=== PATIENT | female | born 1935 | race Caucasian/White ===

== ENCOUNTER 2017-03-18 11:54 | Emergency (ER) | payer MEDICARE ==
--- NOTE | 2017-03-18 14:40 | UC ---
Complaint Female HPI - HPI Summary HPI Summary: Per [employer] "c/o of urinary frequency, burning with urination and lower abdominal pressure for the past 2 days. Denies fever." She has had UTIs in past and sx are consistent. + frequency and spome dysuria. denies gross blood. no fevers/chills ro body aches. - History Of Current Complaint Chief Complaint: [facility] Stated Complaint: POSS. BLADDER INFECTION Time Seen by Provider: 03/18/17 14:27 - Allergies/Home Medications Allergies/Adverse Reactions: Allergies Allergy/AdvReac Type Severity Reaction Status Date / Time No Known Allergies Allergy Verified 03/18/17 13:56 Home Medications: Home Medications Cholecalciferol TAB* [Vitamin D TAB*] 2,000 units PO DAILY 03/18/17 [History Confirmed 03/18/17] Levothyroxine TAB* [Synthroid 100 MCG TAB*] 100 mcg PO DAILY 03/18/17 [History Confirmed 03/18/17] Metoprolol Tartrate TAB* [Lopressor TAB*] 50 mg PO DAILY 03/18/17 [History Confirmed 03/18/17] amLODIPine TAB* [Norvasc 5 mg TAB*] 5 mg PO DAILY 03/18/17 [History Confirmed ] PMH/Surg Hx/FS Hx/Imm Hx Previously Healthy: Yes Endocrine History: Thyroid Disease Cardiovascular History: Hypertension - Surgical History Surgical History: Yes Surgery Procedure, Year, and Place: thyroidectomy - Family History Known Family History: Positive: Other - Mom had CVA - Social History Alcohol Use: None Substance Use Type: None Smoking Status (MU): Never Smoked Tobacco Review of Systems Constitutional: Negative Skin: Negative Eyes: Negative ENT: Negative Respiratory: Negative Cardiovascular: Negative Gastrointestinal: Negative Genitourinary: Dysuria, Frequency, Urgency Motor: Negative Neurovascular: Negative Musculoskeletal: Negative Neurological: Negative Psychological: Negative Is Patient Immunocompromised?: No All Other Systems Reviewed And Are Negative: Yes Physical Exam Triage Information Reviewed: Yes Appearance: Well-Appearing, No Pain Distress, Well-Nourished - very pleasant, appears much younger than stated age. Vital Signs: Initial Vital Signs Temp 98.5 F 03/18/17 13:46 Pulse 55 03/18/17 13:46 Resp 16 03/18/17 13:46 BP 161/95 03/18/17 13:46 Pulse Ox 97 03/18/17 13:46 Vital Signs Reviewed: Yes Eye Exam: Normal ENT Exam: Normal ENT: Positive: Hearing grossly normal, Pharynx normal Neck exam: Normal Neck: Positive: Supple, Nontender, No Lymphadenopathy Respiratory Exam: Normal Respiratory: Positive: Lungs clear, Normal breath sounds, No respiratory distress Cardiovascular: Positive: RRR, Murmur:Sys:Grade _?_/ - II, pt states her doctor is aware of murmur Abdomen Description: Positive: Soft, Other: - mild tenderness over bladder only. Negative: CVA Tenderness (R), CVA Tenderness (L) Bowel Sounds: Positive: Present Musculoskeletal Exam: Normal Neurological Exam: Normal Psychological Exam: Normal Skin Exam: Normal Complaint Female Dx - Course Course Of Treatment: NKDA, keflex x7 days with probiotic. f/u if sx worsen or persist. Udip reviewed. - Differential Dx/Diagnosis Differential Diagnosis/HQI/PQRI: Ureteral Stone, Urinary Tract Infection Provider Diagnoses: UTI Discharge - Discharge Plan Condition: Stable Disposition: HOME Prescriptions: Cephalexin CAP* [Keflex CAP*] 500 mg PO TID #21 cap Patient Education Materials: Urinary Tract Infection in Women (ED) Referrals: Halle Mcdonald MD [Primary Care Provider] - 4 Days Additional Instructions: Make sure to take a probiotic daily while on antibiotics to help prevent a potential complication of antibiotic use called c diff. Some well known brands that can be found OTC are florastor, align and GenerationOne. Make sure to complete the entire prescription unless advised otherwise by your health care provider.
[2017-03-18 14:50] VITALS: BP 134/61
== END 2017-03-18 14:50 | disposition home or self-care (01) ==
LOC: UCCORT 11:54
DX: N39.0 Urinary tract infection, site not specified (principal); I10 Essential (primary) hypertension; E07.9 Disorder of thyroid, unspecified
CPT/HCPCS: 81003; 87077; 87086; 87186; 99212; G0463